=== PATIENT | male | born 1965 | race Caucasian/White ===

== ENCOUNTER 2019-10-14 21:27 | Emergency (ER) | payer OTHER, SELFPAY ==
--- NOTE | ~2019-10-14 | XR_ITS ---
EXAMINATION: XR shoulder LT min 2V DATE: 10/14/2019 21:49 INDICATION: Left shoulder injury and deformity. TECHNIQUE: 4 views of left shoulder were obtained. COMPARISON: None. FINDINGS: There is inferior dislocation of the acromion with respect to distal clavicle. The coracocl avicular interval is increased, consistent with coracoclavicular ligament tear. No fracture. 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 Glenohumeral joint is normal. IMPRESSION: 1. Type III acromioclavicular separation. Reviewed, dictated and finalized at location A.
[2019-10-14 21:34] VITALS: BP 126/96; PULSE 90; RESP 20; TEMP 37.2; O2SAT 96
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
== END 2019-10-14 23:09 | disposition home or self-care (01) ==
PROVIDERS: Emergency Provider Emergency Medicine
DX: S43.142A Inferior dislocation of left acromioclavicular joint, initial encounter (principal); X50.9XXA Other and unspecified overexertion or strenuous movements or postures, initial encounter
CPT/HCPCS: 73030; 99283; A4565

== ENCOUNTER 2019-12-15 12:35 | Outpatient (CLI) | payer OTHER, SELFPAY ==
--- NOTE | ~2019-12-15 | MR_ITS ---
EXAMINATION: MR shoulder LT wo con DATE: 12/15/2019 13:47 INDICATION: Acromioclavicular joint dislocation. TECHNIQUE: Magnetic resonance imaging (MRI) of the left shoulder was performed without intravenous co ntrast. Sequences included axial PD-weighted FS FSE, coronal oblique PD-weighted FS FSE, coronal obli que T2-weighted FS FSE, sagittal PD-weighted FS FSE, and sagittal T1-weighted SE. COMPARISON: None. FINDINGS: Coracoacromial arch: The acromion undersurface is curved in morphology (type II). The coracoacromial ligament is normal. T here is dorsal dislocation of the acromioclavicular joint. A small avulsion fracture fragment arising from the acromion has healed with some cephalad displacement and appears to articulate with the infe rior margin of the lateral head of the left clavicle. Chronic tear of the coracoclavicular ligament w ith developing heterotopic ossification along the wavy lax appearing ligament. Rotator cuff: Mild supraspinatus and infraspinatus tendinopathy without discrete tear. The teres minor tendon is no rmal. Mild tendinopathy without discrete tear at the cephalad aspect of the subscapularis tendon. Nor mal rotator cuff muscle bulk and signal. Biceps tendon, glenoid labrum and glenohumeral cartilage: Long head of the biceps tendon is normal. Shallow tear at the chondral labral interface at the base o f the 10:00-11:00 position of the posterior superior glenoid labrum. Glenohumeral cartilage is normal . Fluid: There is a small amount of fluid in the long head biceps tendon sheath which is disproportionate to t he physiologic amount of fluid in the glenohumeral joint space consistent with mild bicipital tenosyn ovitis. No loose intra-articular osteochondral bodies. There is an approximately 4 mm loose osteochon dral body signed by small amount of fluid in the deep subscapular recess. Small amount of fluid in th e subacromial/subdeltoid bursa consistent with mild bursitis. Bones/other: There is marrow edema at the distal aspect of the dislocated clavicle and adjacent acromion which cou ld be related to residual changes of healing or reactive edema related to secondary mild to moderate osteoarthritis exacerbated by the abnormal alignment. No other fractures or pathologic marrow replaci ng process. There is thickened soft tissue at the rotator cuff interval as well as thickening of the joint capsule at the axillary recess, both findings which can be seen in the setting of adhesive caps ulitis which is a clinical diagnosis. IMPRESSION: 1. Chronic left acromioclavicular joint fracture dislocation with mild residual deformity of the heal ed fracture at the acromion and persistent cephalad subluxation of the clavicle. 2. 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 3. Mild supraspinatus and infraspinatus tendinopathy without discrete tear. 4. Small partial-thickness tear at the chondral labral interval at the posterior superior glenoid lab rum. 5. Thickened soft tissue at the rotator cuff interval and thickening of the joint capsule at the axil valerie recess, both findings which can be seen in the setting of adhesive capsulitis which is a clinica l diagnosis. 6. Mild bicipital tenosynovitis. 7. Mild subacromial/subdeltoid bursitis. Reviewed, dictated and finalized at location A. IMPRESSION: 1. Chronic left acromioclavicular joint fracture dislocation with mild residual deformity of the healed fracture at the acromion and persistent cephalad sublu xation of the clavicle. 2. 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 3. Mild supraspinatus and infraspinatus tendinopathy without discrete tear. 4. Small partial-thickness tear at the chondral labral interval at the
== END 2019-12-15 12:36 | disposition home or self-care (01) ==
LOC: ANHIMG 12:43
PROVIDERS: PCP Internal Medicine Infectious Disease; Visit Provider Orthopaedic Surgery
DX: S43.122A Dislocation of left acromioclavicular joint, 100%-200% displacement, initial encounter (principal); S46.012A Strain of muscle(s) and tendon(s) of the rotator cuff of left shoulder, initial encounter; S43.432A Superior glenoid labrum lesion of left shoulder, initial encounter; M75.22 Bicipital tendinitis, left shoulder; M75.52 Bursitis of left shoulder
CPT/HCPCS: 73221

== ENCOUNTER 2020-02-22 19:25 | Emergency (ER) | payer OTHER, SELFPAY ==
[2020-02-22 19:39] VITALS: BP 114/85; PULSE 80; RESP 20; TEMP 37.1; O2SAT 97
[2020-02-22 20:03] LABS: Add Urine Microscopic? YES; Appearance Urine Cloudy (Clear); Bacteria Urine 1+ /hpf; Bilirubin Urine Negative (Negative); Blood Urine 3+ (Negative); Color Urine Red (Yellow); Glucose Urine UA Negative (Negative); Ketones Urine Negative (Negative); Leukocyte Esterase Ur Trace LEU/UL (Negative); Mucus Urine Moderate /lpf; Nitrate Urine Negative (Negative); Protein Urine 2+ mg/dL (Negative); RBC Urine >75 /hpf (0-2); Specific Grav Ur 1.009 (1.001-1.035); Squamous Epithelial Cell Urine Rare /hpf (Few); Urobilinogen Urine Negative mg/dL (<2.0); WBC Urine 31-50 /hpf
[2020-02-22 21:13] VITALS: BP 134/88; PULSE 62; RESP 12; O2SAT 98
--- NOTE | 2020-02-22 21:47 | ED.MALEGU ---
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 Patient denies any pain, fever, chills, nausea, vomiting. Also denies any similar symptoms. Patient is healthy otherwise, does not take medications at home. No blood thinners Related Data Allergies Allergy/AdvReac Type Severity Reaction Status Date / Time No Known Allergies Allergy Verified 02/22/20 19:43 Review of Systems Review of Systems: Narrative: CONSTITUTIONAL: Denies fever, chills, or sweats. EYES: Denies visual changes, redness, or discharge. ENT: Denies rhinorrhea, congestion, sore throat, or otalgia. CARDIOVASCULAR: Denies chest pain, palpitations, or edema. RESPIRATORY: Denies cough or dyspnea. GASTROINTESTINAL: Denies abdominal pain, nausea, vomiting, or diarrhea. GENITOURINARY: Denies dysuria or hematuria. SKIN: Denies rash or itching. MUSCULOSKELETAL: Denies back pain, joint pain, or myalgia. NEUROLOGIC: Denies headache, numbness, or weakness. PSYCHIATRIC: Denies anxiety or depression. [facility] Past Medical History Medical History Adhesive capsulitis of left shoulder Dislocation of left AC joint with 100%-200% displacement Social History Social History Smoking status: Never smoker Alcohol intake: never Substance use: current Substance use type: marijuana Gender identity (if verbalized by the patient): Male Exam Narrative: Exam Narrative: General appearance: Well-developed, well-nourished Skin: Normal color Head: Normocephalic, nontraumatic Eyes: Clear conjunctiva ENT: Oropharynx normal, ears normal, nose normal Neck: Supple, nontender Chest and respiratory: Airway patent, no respiratory distress, no accessory muscle use Heart: Regular rate/rhythm Abdomen: Soft, nontender, no organomegaly, quiet bowel sounds Vascular: Normal peripheral pulses, normal capillary refill. Musculoskeletal: Normal range of motion, nontender back Neurologic: Alert and oriented ?3, LOG TUMBLER is normal as tested, no gross motor deficit Course Course Emergency Course: Stable Vital Signs Vital signs: Vital Signs Temperature 37.1 C 02/22/20 19:39 Pulse Rate 80 02/22/20 19:39 Respiratory Rate 20 02/22/20 19:39 Blood Pressure 114/85 02/22/20 19:39 Pulse Oximetry 97 02/22/20 19:39 Temperature 37.1 C 02/22/20 19:39 Pulse Rate 62 02/22/20 21:13 Respiratory Rate 12 02/22/20 21:13 Blood Pressure 134/88 02/22/20 21:13 Pulse Oximetry 98 02/22/20 21:13 MDM - Male Genitourinary MDM Narrative Medical decision making narrative: Patient presents with hematuria UTI is my concern. UA ordered. Further plan to follow Differential Diagnosis Differential diagnosis: Likely urinary tract infection Lab Data Labs: Lab Results 02/22/20 Range/Units 19:47 Urine Color Red H (Yellow) Urine Appearance Cloudy H (Clear) Urine pH 6.0 (5.0-9.0) Ur Specific [place] 1.009 (1.001-1.035) Urine Protein 2+ H (Negative) mg/dL Urine Glucose (UA) Negative (Negative) mg/dL Urine Ketones Negative (Negative) mg/dL Ur Blood (Man) 3+ H (Negative) Urine Nitrate Negative (Negative) Urine Bilirubin Negative (Negative) Urine Urobilinogen Negative (<2.0) mg/dL Leukocyte Esterase Rfl Trace H (Negative) VICENTA/UL Urine RBC >75 H (0-2) /hpf Urine
[2020-02-22 22:00] VITALS: BP 133/82; PULSE 72; RESP 19; O2SAT 100
[2020-02-22] MEDS: PHENAZOPYRIDINE HCL 100 MG TABLET 200 MG PO (22:03)
[2020-02-22] MEDS: CIPROFLOXACIN 500 MG TAB PO (22:04)
== END 2020-02-22 22:00 | disposition home or self-care (01) ==
PROVIDERS: Emergency Provider Emergency Medicine; PCP Internal Medicine Infectious Disease
DX: N39.0 Urinary tract infection, site not specified (principal)
CPT/HCPCS: 81001; 87086; 87088; 99283; A9270

== ENCOUNTER 2020-03-17 12:30 | Outpatient (RCR) | payer OTHER, SELFPAY ==
[2019-12-18 08:44] VITALS: BP_SYST 60
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
[2020-01-11 13:42] VITALS: BP_SYST 101
--- NOTE | 2020-01-25 15:56 | OTOPEVAL ---
OCCUPATIONAL THERAPY RE-EVALUATION REPORT 01/25/2020 Thank you for referring Armen Bazzi to [facility] [place]. Continued skilled therapy recommended 2x/week for 4 weeks. Please review, sign, date and return this plan of care AARON. I agree with and certify that the following plan of care is medically necessary. Referring Physician Date Referring Provider: Chirag Carter MD *OT Outpatient Re-Evaluation Evaluation Information Problem Diagnosis Sprain left index finger PIP Onset 10/14/2019 Additional Evaluation Detail Bryan has been participating in outpatient OT x8 sessions for left IF stiffness following a PIP sprain. Subjective Information Patient reports good Query Text:As Reported By Patient/ compliance with all home Family programs. 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 Continues to report pain/discomfort and stiffness that limits his ability to use his left/dominant hand to hold and use a drill and hobbies such as air brushing. Pain Assessment Timing of Pain Assessment Timing of Pain Assessment Pre-Treatment Pain Scale Pain Scale Used Numeric (1 - 10) Self Report Pain Assessment Left Hand(s) Reported Pain Level 0 Greatest Pain Intensity 5 Pain Relief Interventions Used By Exercise,Heat Patient Pain Score Pain Score 0: Self Report Upper Extremity Range of Motion Wrist Range of Motion Left Reason Not Measured WNL/Left Finger Range of Motion Left Index Finger MCP Joint Flexion - Active 95 Index Finger MCP Joint Extension - 0 Active Index Finger PIP Joint Flexion - Active 80 Index Finger PIP Joint Flexion - Passive 90 Index Finger PIP Joint Extension - -35 Active Index Finger PIP Joint Extension - -25 Passive Index Finger DIP Joint Flexion - Active 45 Index Finger DIP Joint Flexion - Passive 50 Index Finger DIP Joint Extension - 0 Active Index Finger Tip to Distal Palmar Crease 3 - Active Index Finger Tip to Base of Palm - 0 Active Finger Range of Motion Comments -At SOC pat
--- NOTE | 2020-02-04 14:04 | PTOPEVAL ---
PHYSICAL THERAPY PROGRESS REPORT AND PLAN OF CARE UPDATE Thank you for referring Armen Bazzi to [facility].? The patient is scheduled to be seen for therapy? 2x/week for 4 weeks. Please review, sign, date and return this plan of care AARON. I agree with and certify that the following plan of care is medically necessary. Referring Physician Date Attending Provider: Chirag Carter MD Progress Outpatient Past Medical History Musculoskeletal History Hx Arthritis Yes Hx Back Pain Yes: stenosis, bulging disc Pain History Has Past Pain Affected Your Daily Life Yes Diagnosis left shoulder AC joint separation with adhesive capsulitis Onset 10/14/2019 Subjective Information Armen is progressing well Query Text:As Reported By Patient/ with therapy. He saw [facility] Family who reports that he was pleased with progress so far. Emma states he will not do ACJ separation surgery and no surgeon will do the surgery if there continues to adhesive capsulitis. Self Report Pain Assessment Left Shoulder(s) Reported Pain Level 1 Pain Score Pain Score 1: Self Report Additional Pain Score Comments back is really hurting today Upper Extremity Range of Motion Scapular/ Shoulder Range of Motion Left Shoulder Flexion - Active 121 Shoulder Abduction - Active 101 Shoulder Medial Rotation - Active L3 Query Text:Reach Behind the Back Shoulder Lateral Rotation - Active left lateral occipital condyle Query Text:Reach Behind the Head Scapular/Shoulder Range of Motion horizontal abduction: 76deg Comments Upper Extremity Muscle Strength Testing Scapular/Shoulder Left Shoulder Flexion Strength 4 Good Shoulder Abduction Strength 3+ Fair + Shoulder Medial Rotation Strength 5 Normal Shoulder Lateral Rotation Strength 4 Good PT Clinical Summary Armen is a 54 yo male participating in outpatient physical therapy following gr 3 left AC joint separation after a fall on left shoulder and resulting in adhesive capsulitis. He demonstrates today significant progress in ROM, especially in flexion. He also has strenght progression. We will continue 2x/week for 4 weeks followed by re-assessment to determine
--- NOTE | 2020-02-27 10:53 | OTOPEVAL ---
OCCUPATIONAL THERAPY RE-EVALUATION AND PROGRESS UPDATE 02/27/2020 Thank you for referring Armen Bazzi to [facility]. As described below, patient is progressing with functional ROM and strength of the left hand. Continued skilled OT indicated.? The patient is scheduled to be seen for therapy? 2x/week for 4 weeks. Please review, sign, date and return this plan of care AARON. I agree with and certify that the following plan of care is medically necessary. Referring Physician Date Admitting Provider: Attending Provider: Chirag Carter MD Referring Provider: *OT Outpatient Evaluation Evaluation Information Problem Diagnosis Sprain of left index finger PIP Onset 10/14/2019 Additional Evaluation Detail Bryan has been participating in outpatient OT x15 sessions for left IF stiffness following a PIP sprain. 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 He states he is still having severe difficulty with stiffness and range of motion which has restricted his ability to use a spoon when eating. Pain Assessment Timing of Pain Assessment Timing of Pain Assessment Pre-Treatment Pain Scale Pain Scale Used Numeric (1 - 10) Self Report Pain Assessment Left Hand(s) Reported Pain Level 0 Lowest Pain Intensity 0 Greatest Pain Intensity 4 Pain Score Pain Score 0: Self Report Upper Extremity Range of Motion Finger Range of Motion Left Index Finger MCP Joint Flexion - Active 105 Index Finger MCP Joint Extension - 0 Active Index Finger PIP Joint Flexion - Active 90 Index Finger PIP Joint Flexion - Passive 102 Index Finger PIP Joint Extension - -35 Active Index Finger PIP Joint Extension - -15 Passive Index Finger DIP Joint Flexion - Active 55 Index Finger DIP Joint Flexion - Passive 70 Index Finger DIP Joint Extension - 0 Active Index Finger Tip to Distal Palmar Crease 2 - Active Index Finger Tip to Base of Palm - 0 Active Finger Range of Motion Limitations Edema,Pain,Soft Tissue Restriction Finger Range of Motion Comments -Middle through pinky fingers ROM are WNL.
--- NOTE | 2020-02-27 11:53 | PTOPEVAL ---
PHYSICAL THERAPY PLAN OF CARE UPDATE Thank you for referring Armen Bazzi to [facility] [place].? The patient is scheduled to be seen for therapy? 1x/week for 4 weeks. Please review, sign, date and return this plan of care AARON. I agree with and certify that the following plan of care is medically necessary. Referring Physician Date Attending Provider: Chirag Carter MD Progress Diagnosis Sprain of left index finger PIP Onset 10/14/2019 Subjective Information Armen reports that the Query Text:As Reported By Patient/ shoulder feels like it is Family doing really well. Reports that the amount of pain has reduced significantly and the popping in the shoulder has reduced greater than 50%. He reports that he is noticing improvements in function, but that he is also holding himself back because he does not want to damage the shoulder. Pain Assessment Timing of Pain Assessment Timing of Pain Assessment Pre-Treatment Pain Scale Pain Scale Used Numeric (1 - 10) Self Report Pain Assessment Left Shoulder(s) Reported Pain Level 2 Pain Score Pain Score 2: Self Report Additional Pain Score Comments . Upper Extremity Range of Motion Scapular/ Shoulder Range of Motion Left Shoulder Flexion - Active 135 Shoulder Abduction - Active 139 Shoulder Medial Rotation - Active T12 Query Text:Reach Behind the Back Shoulder Lateral Rotation - Active occiput Query Text:Reach Behind the Head Scapular/Shoulder Range of Motion horizontal abduction: 81deg Comments Upper Extremity Muscle Strength Testing Scapular/Shoulder Left Shoulder Flexion Strength 4+ Good + Shoulder Abduction Strength 5 Normal Shoulder Medial Rotation Strength 5 Normal Shoulder Lateral Rotation Strength 5 Normal General Exercise General Exercises Side Left Exercise Location shoulder Exercise Type Active,Active/Assistive Exercise Description -pulleys flexion, abduction, Query Text:Record Sets, Reps, behind the back IR x3min Resistance, and Position -PNF D2 flexion and D1 extension red theraband x15 each -snow angels with modifications to accomodate ROM x15 - incline with raised table to hip height
--- NOTE | 2020-03-18 07:38 | PCOTNOTE ---
This treatment is being continued on visit number [id number]. Please see documentation on both accounts to view progress. Completed interventions, outcomes, and problems have been marked as Inactive to facilitate the copying of the Care plan routine for recurring accounts.
--- NOTE | 2020-03-18 09:41 | PCPTNOTE ---
This treatment is being continued on visit number [id number]. Please see documentation on both accounts to view progress. Completed interventions, outcomes, and problems have been marked as Inactive to facilitate the copying of the Care plan routine for recurring accounts.
== END 2020-03-17 23:59 | disposition home or self-care (01) ==
LOC: ANHOT 12:30
PROVIDERS: PCP Internal Medicine Infectious Disease; Visit Provider Orthopaedic Surgery
DX: S43.122D Dislocation of left acromioclavicular joint, 100%-200% displacement, subsequent encounter (principal); S63.631D Sprain of interphalangeal joint of left index finger, subsequent encounter
CPT/HCPCS: 97018; 97035; 97110; 97140; 97162; 97165; 97760

== ENCOUNTER 2020-04-24 11:00 | Outpatient (RCR) | payer OTHER, SELFPAY ==
[2020-03-18 00:02] VITALS: BP_SYST 101
--- NOTE | 2020-03-18 07:45 | PCOTNOTE ---
The treatment documented on this account is a continuation of the treatment documented on visit number [id number]. Please see documentation on both accounts to view progress. The Plan of Care has been transitioned and updated within the new V#. I have addressed and agree with the discipline specific Problems, Interventions, and Goals for the current certification period. Completed interventions, outcomes, and problems have been marked as Inactive to facilitate the copying of the Care plan routine for recurring accounts.
--- NOTE | 2020-03-18 09:42 | PCPTNOTE ---
The treatment documented on this account is a continuation of the treatment documented on visit number [id number]. Please see documentation on both accounts to view progress. The Plan of Care has been transitioned and updated within the new V#. I have addressed and agree with the discipline specific Problems, Interventions, and Goals for the current certification period. Completed interventions, outcomes, and problems have been marked as Inactive to facilitate the copying of the Care plan routine for recurring accounts.
--- NOTE | 2020-03-24 16:35 | PCOTNOTE ---
Patient called & cancelled scheduled appointment this date.
--- NOTE | 2020-03-26 13:48 | OTOPEVAL ---
OCCUPATIONAL THERAPY RE-EVALUATION REPORT 03/26/2020 Thank you for referring Armen Bazzi to [facility].? The patient is scheduled to be seen for continued occupational therapy? 2x/week for 4 weeks. Please review, sign, date and return this plan of care AARON. I agree with and certify that the following plan of care is medically necessary. Referring Physician Date Attending Provider: Chirag Carter MD Referring Provider: Chirag Carter MD *OT Outpatient Evaluation Evaluation Information Problem Diagnosis Sprain of left index finger PIP Onset 10/14/2019 Additional Evaluation Detail Patient has been participating in outpatient OT since following left finger sprain. Repeat x-ray from 02/06 does show a healed proximal phalanx fracture. Patient was not splinted after the injury and began therapy 2 months after the injury. His progress has been slow, but consistent. He has been compliant with all materials. The finger does respond well to thermal modalities, manual therapy, and progressive strengthening. 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 He states he is able to use the hand for more tasks, for longer, and with less pain. Pain Assessment Pain Scale Pain Scale Used Numeric (1 - 10) Self Report Pain Assessment Left Finger, Index Reported Pain Level 0 Lowest Pain Intensity 0 Greatest Pain Intensity 3 Pain Score Pain Score 0: Self Report Upper Extremity Range of Motion Finger Range of Motion Left Index Finger MCP Joint Flexion - Active 105 Index Finger MCP Joint Extension - 0 Active Index Finger PIP Joint Flexion - Active 95 Index Finger PIP Joint Extension - -25 Active Index Finger PIP Joint Extension - -10 Passive Index Finger DIP Joint Flexion - Active 60 Index Finger DIP Joint Flexion - Passive 75 Index Finger DIP Joint Extension - 0 Active Index Finger Tip to Distal Palmar Crease 1 - Active Index Finger Tip to Base of Palm - 0 Active
--- NOTE | 2020-03-26 14:13 | PTOPEVAL ---
PHYSICAL THERAPY DISCHARGE NOTE Thank you for referring Armen Bazzi to [facility].? Please review, sign, date and return this plan of care AARON. I agree with and certify that the following plan of care is medically necessary. Referring Physician Date Attending Provider: Chirag Carter MD Discharge Evaluation Information Problem Diagnosis Gr 3 left ACJ separation, adhesive capsulitis Onset Subjective Information Armen reports that his Query Text:As Reported By Patient/ shoulder is doing better after Family last week when he overused the arm some and it was in a state of increased pain and the ACJ looked like it had a greater separation. reports that ACJ is feeling better today. Self Report Pain Assessment Left Shoulder(s) Reported Pain Level 1 Pain Score Pain Score 1: Self Report Upper Extremity Range of Motion Scapular/ Shoulder Range of Motion Left Shoulder Flexion - Active 135 Shoulder Flexion - Passive 140 Shoulder Abduction - Active 160 Shoulder Medial Rotation - Active T9 Query Text:Reach Behind the Back Shoulder Lateral Rotation - Active T2 Query Text:Reach Behind the Head Upper Extremity Muscle Strength Testing Scapular/Shoulder Left Shoulder Flexion Strength 4+ Good + Shoulder Abduction Strength 5 Normal Shoulder Medial Rotation Strength 5 Normal Shoulder Lateral Rotation Strength 5 Normal PT Clinical Summary Armen is a 54 yo male participating in outpatient physical therapy following gr 3 left AC joint separation after a fall on left shoulder and resulting in adhesive capsulitis. Bryan demonstrates significant increases in ROM for abduction , internal rotation, and external rotation since the last reassessment; however, has a plateau with flexion ROM and strength. At this time, I recommend discharge from PT with continuing HEP. PT Services Indicated No Rehabilitation Potential Good Other Potential Barriers to Goal Chronicity of condition Achievement Support Requirements For Optimal None Menard Patient/Caregiver Informed of Benefits/ Yes Risks of Rehabilitati
--- NOTE | 2020-04-24 11:39 | OTOPEVAL ---
OCCUPATIONAL THERAPY DISCHARGE 04/24/2020 Thank you for referring Armen Bazzi to [facility].? The patient is approaching a progress plateau with left had ROM and strength. D/C today with patient independent with HEP. Please review, sign, date and return this D/C Note AARON. I agree with and certify that the following plan of care is medically necessary. Referring Physician Date Attending Provider: Chirag Carter MD Referring Provider: Chirag Carter MD *OT Outpatient Evaluation Outpatient Past Medical History Musculoskeletal History Hx Arthritis Yes Hx Back Pain Yes: stenosis, bulging disc Pain History Has Past Pain Affected Your Daily Life Yes Evaluation Information Problem Diagnosis Sprain of left index finger PIP Onset 10/14/2019 Additional Evaluation Detail Patient has been participating in outpatient OT since following left finger sprain. Repeat x-ray from 02/06 does show a healed proximal phalanx fracture. Patient was not splinted after the injury and began therapy 2 months after the injury. His progress has been slow, but consistent. He has been compliant with all materials. The finger does respond well to thermal modalities, manual therapy, and progressive strengthening. Subjective Information Armen reports that his finger Query Text:As Reported By Patient/ has made progress in the last Family month, noting improvements with flexibility and strength. Pain Assessment Timing of Pain Assessment Timing of Pain Assessment Re-assessment Pain Scale Pain Scale Used Numeric (1 - 10) Self Report Pain Assessment Left Finger, Index Reported Pain Level 1 Pain Description Soreness Lowest Pain Intensity 0 Greatest Pain Intensity 3 Pain Aggravating Factors ADL's Pain Score Pain Score 1: Self Report Interventions Used Interventions Used By Clinicians Education,Exercise Upper Extremity Range of Motion Finger Range of Motion Left Index Finger MCP Joint Flexion - Active 105 Index Finger MCP Joint Extension - 0 Active Index Finger PIP Joint Flexion - Active 95 Index Finger PIP Joint Extension - -25 Active Index Finger PIP Joint Extension - -10 Passive Index Finger DIP Joint Flexion - Active 65
== END 2020-06-02 10:08 | disposition home or self-care (01) ==
LOC: ANHOT 11:00
PROVIDERS: PCP Internal Medicine Infectious Disease; Visit Provider Orthopaedic Surgery
DX: S43.122D Dislocation of left acromioclavicular joint, 100%-200% displacement, subsequent encounter (principal); M75.02 Adhesive capsulitis of left shoulder; S63.631D Sprain of interphalangeal joint of left index finger, subsequent encounter
CPT/HCPCS: 97018; 97035; 97110; 97140